=== PATIENT | male | born 1985 | race Caucasian/White ===

== ENCOUNTER 2020-06-10 11:42 | Emergency (ER) | payer OTHER ==
[2020-06-10 11:58] VITALS: BP 126/81; PULSE 99; TEMP 97; BMI 33.9
[2020-06-10] MEDS ORDERED: POLYETHYLENE GLYCOL 3350 119 GM BTL PO ONE (12:38)
[2020-06-10] MEDS ORDERED: SODIUM PHOSPHATE/NA BIPHOS 133 ML ENEMA PR ONE (12:38)
--- NOTE | 2020-06-10 12:44 | PDOC ---
History of Present Illness - General Chief Complaint: Constipation Stated Complaint: CONSTIPATION Time Seen by Provider: 06/10/20 12:01 History Source: Patient Exam Limitations: No Limitations - History of Present Illness Travel History: No Initial Comments: 06/10/20 12:39 HISTORY OF PRESENT ILLNESS: 34-year-old male with past medical history of CT 201 6 who presents to the emergency department for evaluation of firm bowel movements over the past 6 months. Patient reports he feels the urge to move his bowels but he has to excessively strain to evacuate his bowels. Patient was talking to his mother this morning who was concerned that he may have cancer and convince him to come to the emergency department for evaluation. Patient denies any abdominal pain, diarrhea, bloody stools, rectal burning or bleeding. Patient reports his mother's brother was diagnosed with colon cancer in his 40s. Patient reports his last bowel movement was this morning. Patient states he occasionally performs self disimpaction while in the shower to help stimulate his bowels. Additionally patient reports he eats 1 meal daily over the past 6 months and has had decreased activity level due to the COVID-19 pandemic. No recent travel or sick contacts. PAST MEDICAL HISTORY: See HPI SURGICAL HISTORY: Denies ALLERGIES: No known drug allergies REVIEW OF SYSTEMS General/Constitutional: Denies fever or chills. Denies weakness, weight change. HEENT: Denies change in vision. Denies ear pain or discharge. Denies sore throat. Cardiovascular: Denies chest pain or shortness of breath. Respiratory: Denies cough, wheezing, or hemoptysis. Gastrointestinal: See HPI Genitourinary: Denies dysuria, frequency, or change in urination. Musculoskeletal: Denies joint or muscle swelling or pain. Denies neck or back pain. Skin and breasts: Denies rash or easy bruising. Neurologic: Denies headache, vertigo, loss of consciousness, or loss of sensation. Psychiatric: Denies depression or anxiety. Endocrine: Denies increased thirst. Denies abnormal weight change. Hematologic/Lymphatic: Denies anemia, easy bleeding, or history of blood clots. Allergic/Immunologic: Denies hives or skin allergy. Denies latex allergy. PHYSICAL EXAM General Appearance: Well-appearing, appropriately dressed. No apparent distress, no intoxication. Respiratory/Chest: Lungs CTAB. No shortness of breath, chest tenderness, respiratory distress, accessory muscle use. No crackles, rales, rhonchi, stridor, wheezing, dullness Cardiovascular: RRR. S1, S2. No JVD, murmur, bradycardia, tachycardia. Vascular Pulses: Dorsalis-Pedis (R): 2+, Dorsalis-Pedis (L): 2+ Gastrointestinal/Abdominal: Normal bowel sounds. Abdomen soft, non-distended. No tenderness or rebound tenderness. No organomegaly, pulsatile mass, guarding, hernia, hepatomegaly, splenomegaly. Past History - Medical History Allergies/Adverse Reactions: Allergies Allergy/AdvReac Type Severity Reaction Status Date / Time No Known Allergies Allergy Verified 06/10/20 11:57 Home Medications: Ambulatory Orders NK [No Known Home Medication] 06/10/20 Cardiac Disorders: Yes (CT 08/2016) COPD: No - Psycho-Social/Smoking History Smoking History: Current every day smoker Have you smoked in the past 12 months: Yes Number of Cigarettes Smoked Daily: 20 Information on smoking cessation initiated: No 'Breaking Loose' booklet given: 08/19/16 - Substance Abuse Hx (Audit-C & DAST Scrn) How often the patient has a drink containing alcohol: Never Score: In Men: 4 or > Positive; In Women: 3 or > Positive: 0 Screen Result (Pos requires Nsg. Audit-10AR): Negative *Physical Exam - Vital Signs Last Vital Signs Temp Pulse Resp BP Pulse Ox 97 F L 99 H 18 126/81 97 06/10/20 11:53 06/10/20 11:53 06/10/20 11:53 06/10/20 11:53 06/10/20 11:53 Medical Decision Making - Medical Decision Making 06/10/20 12:42 A/P: 34-year-old male with 6 months of firm bowel movements and straining required to move bowels and pass gas Abdominal exam is unremarkable MiraLAX Fleets enema Reassess 06/10/20 13:31 Patient reports having large bowel movement after using enema. Patient reports he currently feels better. I will discharge patient home with GI follow-up. I discussed the physical exam findings, ancillary test results and final diagnoses with the patient. I answered all of the patient's questions. The patient was satisfied with the care received and felt comfortable with the discharge plan and treatment plan. The patient will call their primary care physician within 24 hours to arrange follow-up and will return to the Emergency Department with any new, persistent or worsening symptoms. Portions of this note have been documented using voice recognition software. As a result, errors may occur in the cleaning crew member process. Effort has been made to correct all grammatical and cleaning crew member error, but some may have been missed which may produce sporadic inaccurate cleaning crew member or nonsensical phrases. Discharge - Discharge Information Problems reviewed: Yes Clinical Impression/Diagnosis: Constipation Qualifiers: Constipation type: unspecified constipation type Qualified Code(s): K59.00 - Constipation, unspecified Condition: Fair Disposition: HOME - Admission No - Follow up/Referral Referrals: Molina Jc MD [Staff Physician] - - Patient Discharge Instructions Additional Instructions: Increase your dietary fiber intake. Drink lots of fluids. Increase your daily exercise. You have been given a referral for a GI specialist. Call to schedule appointment for reevaluation. Return to the emergency department for any new or worsening symptoms. Thank you very much for choosing us to provide your emergent healthcare needs - Post Discharge Activity
== END 2020-06-10 14:00 | disposition home or self-care (01) ==
LOC: JER 11:42
DX: K59.00 Constipation, unspecified (principal)
CPT/HCPCS: 99283-25